=== PATIENT | female | born 1950 | race Caucasian/White ===

== ENCOUNTER 2017-01-11 09:53 | Day surgery (SDC) | payer MEDICARE ==
[~2017-01-11] VITALS: Ht 157.5 cm; Wt 59.0 kg
[~2017-01-11 09:53] MED LIST: 0.9% Sodium Chloride 1,000 ML IV PRN; ALBU0.63 INHALATION; ALBU8.5H2 INHALATION; ALEN70TA2 PO; ASPI-973 PO; BACL20TA PO; BECL8.7A6 IH; BECL8.7A6 INHALATION; CARV12.52 PO; DIFL500T PO; EPIN0.3P2 IJ; FLUO10CA20 PO; FURO-129 PO; HYDR-3825 PO; HYOS0.1281 SL; LEFL20TA18 PO; LISI10TA PO; METF500T4 PO; MIRA25TA PO; MIRT30TA PO; MONT10TA20 PO; MUPI15CR TOPICAL; PANT40TA2 PO; PROP80CA2 PO; RES15 PO; Sodium Chloride LOK Flush 10 mL Syringe IV PRN; TOLT4CAP13 PO; TRAM50TA2 PO; fentaNYL-PF 50 mCg/mL 2 mL Inj IVPUSH PRN
[2017-01-11 10:32] VITALS: BP 138/91; PULSE 105; RESP 17; O2SAT 98
[2017-01-11 12:03] VITALS: BP 123/77; PULSE 89; RESP 14; O2SAT 90
--- NOTE | 2017-01-11 12:03 | PCM.ENDCOL ---
Colonoscopy Date of Service: Jan 11, 2017 Physician Eric Dela Cruz MD Pre Procedure Diagnosis: Screening diarrhea last colonoscopy 17 years ago Post Procedure Dx & Findings: Polyps hemorrhoids diverticula and possible lipoma Procedure Colonoscopy Prep adequate Withdrawal 15 minutes PROCEDURE IN DETAIL: After unremarkable rectal examination Olympus video colonoscope was inserted patient's anal canal and was advanced to cecum. Landmarks are identified including the ileocecal valve and appendiceal orifice. Further events the terminal ileum up to 5-8 cm. Scope was withdrawn systematically. The mucosa of the cecum, ascending, transverse, descending, sigmoid, rectal mucosa lined with whitish, pink, smooth, glistening, normal-appearing mucosa, normal fine branching, underlying vascularity, normal haustra. The patient tolerated procedure and was transported to observation area. In the ascending colon there was a 2 mm polyp which was removed completely using cold snare. In the transverse colon there was a 1 cm lipomatous structure with positive pillow sign. Status post biopsy using cold forceps. In the descending colon there was a 3 mm polyp which was removed completely using cold snare. In the rectum there was a 1 mm polyp which was removed completely using cold forceps. Several small diverticuli noted in the cecum but isolated diverticuli also noted into the transverse colon. In the rectum retroflexion was done which showed hemorrhoids in a canal was inspected carefully and the way out and hemorrhoids noted. Random biopsies taken from cecum to the rectum. Impression Normal TI Normal colonic mucosa Polyps 2 status post complete removal Diverticuli Hemorrhoids Possible lipoma Recommendation Repeat colonoscopy 5 years Diverticular diet Presedation Assessment Risks and Benefits Informed consent was obtained from the patient after all risks and benefits including but not limited to drug reaction, infection, pain, bleeding, perforation, as well as alternatives were discussed. Patient monitoring Continuous pulse oximetry, cardiac monitoring, blood pressure monitoring, IV access, and oxygen at 2L per nasal cannula. Periprocedural Fentanyl: Fentanyl 125mcg Incrementally Midazolam: Midazolam 6mg Incrementally Complications There were no periprocedural complications identified. Post Procedure Plan Post Procedure Recommendations 1. Restrict activities today. 2. Resume normal activities in the morning. 3. Resume medications. 4. Patient informed of normal post procedure side effects as bloating, drowsiness, blood streaking in the stool. 5. average risk CRCS. If colon polyps come back as: -Hyperplastic- can repeat colonoscopy in 10 years -Tubular adenoma- repeat colonoscopy in 5 years -Tubulovillous/villous adenoma- repeat colonoscopy in 3 years -If any dysplasia- return to clinic as soon as possible 6. Please don't hesitate to call me with any questions. Eric Dela Cruz MD Jan 11, 2017 12:03
[2017-01-11 12:13] VITALS: BP 111/69; PULSE 87; RESP 16; O2SAT 93
[2017-01-11 12:23] VITALS: BP 100/49; PULSE 103; RESP 16; O2SAT 93
--- NOTE | 2017-01-12 11:20 | PATH ---
SURGICAL PATHOLOGY Attending Physician:Eric Dela Cruz M.D. CASE STATUS: Signed Out PATIENT NAME: ZAIRA CHÁVEZ PID: [id number] : 1950 DATE COLLECTED:01/11/2017 20:02 SPECIMEN: 1: Colon, Biopsy 2: Colon, Biopsy 3: Colon, Biopsy 4: Colon, Biopsy 5: Rectum, Biopsy CLINICAL HISTORY: DIARRHEA, COLON POLYPS 1). RANDOM COLON BIOPSY 2). ASCENDING COLON POLYP 3). TRANSVERSE COLON LIPOMA BIOPSY 4). DESCENDING COLON POLYP X1 5). RECTAL POLYP X1 FINAL DIAGNOSIS: 1.RANDOM COLON BIOPSIES: SINGLE FRAGMENT OF COLON MUCOSA WITH FOCAL MUCOSAL SCARRING CONSISTENT WITH PREVIOUS MUCOSAL INJURY. ALL ADDITIONAL COLON FRAGMENTS APPEAR NORMAL, NEGATIVE FOR SIGNIFICANT ARCHITECTURAL DISTORTION, INFLAMMATION, DYSPLASIA AND MALIGNANCY. 2.ASCENDING COLON POLYP: TUBULAR ADENOMA. 3.TRANSVERSE COLON LIPOMA BIOPSY: POLYPOID-SHAPED FRAGMENT OF COLON MUCOSA CONSISTENT WITH MUCOSAL POLYPOID REDUNDANCY WITH NO EVIDENCE OF SUBMUCOSAL LIPOMA. 4.DESCENDING COLON POLYP: TUBULAR ADENOMA. 5.RECTAL POLYP: HYPERPLASTIC POLYP. ICD10 CODE D12.2 GROSS DESCRIPTION: The specimen is received in five formalin filled containers labeled with the patient's name. 1). The specimen is sublabeled "random colon" and consists of 5 portions of tissue which aggregate to 0.5 x 0.5 x 0.3 CM. The specimen is entirely submitted in cassettes 1A. 2). The specimen is sublabeled "ascending colon polyp" and consists of a 0.4 x 0.3 x 0.2 CM portion of tissue which is entirely submitted in cassette 2A. 3). The specimen is sublabeled "transverse colon lipoma" and consists of a 0.2 x 0.2 x 0.2 CM portion of tissue which is entirely submitted in cassettes 3A. 4). The specimen is sublabeled "descending colon polyp" and consists of a 0.2 x 0.2 x 0.2 CM portion of tissue which is entirely submitted in cassette 4A. 5). The specimen is sublabeled "rectal polyp" and consists of a 0.2 x 0.2 x 0.2 CM portion of tissue which is entirely submitted in cassette 5A. 01/11/2017 DAC MICRO DESCRIPTION: See diagnosis. ICD-9 CODES: CPT CODES: 1: 35103 2: 15112 3: 39879 4: 42486 5: 27352 Electronically Signed Out Shad Ryan MD [facility] [address], [place] [address] Technical component performed at [facility], [address], [place], [address]
[2017-04-23] MEDS ORDERED: HYDR-3825 PO (15:20)
== END 2017-01-11 23:59 | disposition home or self-care (01) ==
LOC: END 09:53
PROVIDERS: ATTEND Internal Medicine
DX: Z12.11 Encounter for screening for malignant neoplasm of colon (principal); D12.2 Benign neoplasm of ascending colon; D12.4 Benign neoplasm of descending colon; K62.1 Rectal polyp; K63.5 Polyp of colon; K64.8 Other hemorrhoids; K57.30 Diverticulosis of large intestine without perforation or abscess without bleeding; E11.9 Type 2 diabetes mellitus without complications; I25.10 Atherosclerotic heart disease of native coronary artery without angina pectoris; M06.9 Rheumatoid arthritis, unspecified; K21.9 Gastro-esophageal reflux disease without esophagitis; E78.5 Hyperlipidemia, unspecified; G47.33 Obstructive sleep apnea (adult) (pediatric); Z79.51 Long term (current) use of inhaled steroids; Z79.84 Long term (current) use of oral hypoglycemic drugs; Z79.82 Long term (current) use of aspirin
CPT/HCPCS: 45380; 45385; 99153; G0500; J2250; J3010; J7030

== ENCOUNTER 2017-04-26 11:15 | Day surgery (SDC) | payer MEDICARE ==
[~2017-04-26] VITALS: Ht 157.5 cm; Wt 62.0 kg
[~2017-04-26 11:15] MED LIST changes: -0.9% Sodium Chloride 1,000 ML IV PRN; +0.9% Sodium Chloride 1,000 ML IV SCH; -FURO-129 PO; -HYOS0.1281 SL; -MIRA25TA PO; -MUPI15CR TOPICAL; -RES15 PO; -TOLT4CAP13 PO
[2017-04-26 11:51] VITALS: BP 151/91; PULSE 85; RESP 16; O2SAT 96
[2017-04-26] MEDS ORDERED: CARV12.52 PO (11:51)
[2017-04-26 12:30] VITALS: BP 119/78; PULSE 82; RESP 16; O2SAT 94
--- NOTE | 2017-04-26 12:34 | PCM.ENDEGD ---
EGD Date of Service: Apr 26, 2017 Physician Eric Dela Cruz MD Pre Procedure Diagnosis: Abdominal pain Post Procedure Dx & Findings: Gastritis Procedure Esophagogastroduodenoscopy PROCEDURE IN DETAIL: After proper sedation, Olympus video endoscope was inserted into patient's mouth and esophagus was successfully intubated. Scope introduced esophagus. Esophagus showed normal shiny whitish mucosa consistent with squamous cell component. Z line was intact at 40 cm from the incisors. Scope further advanced to the stomach. Antrum showed atrophy redness and edema consistent with gastritis. Biopsies obtained. Cardia fundus body antrum pylorus were all visualized. Retroflexion was done. Stomach was easily inflated and deflatable using air. Scope further advanced to the distal duodenum. Duodenum revealed normal villous structures with normal appearing folds without any mass ulcer erosion. 5 biopsies obtained. Impression Gastritis Recommendations Biopsies Presedation Assessment Risks and Benefits Informed consent was obtained from the patient after all risks and benefits including but not limited to drug reaction, infection, pain, bleeding, perforation, as well as alternatives were discussed. Patient monitoring Continuous pulse oximetry, cardiac monitoring, blood pressure monitoring, IV access, and oxygen at 2L per nasal cannula. Periprocedural Fentanyl: Fentanyl 75mcg Incrementally Midazolam: Midazolam 4mg Incrementally Complications There were no periprocedural complications identified. Post Procedure Plan Post Procedure Recommendations 1. Restrict activities today. 2. Resume normal activities in the morning. 3. Resume medications. 4. GERD behavioral modification: - Avoid fatty, acidic, spicy, large meals - Do not lie down after meals - Do not eat or drink anything for at least 2 1/2 hours before going to bed at night - Discontinue tobacco and alcohol - Decrease or avoid caffeine - Avoid chocolate and mints - Decrease weight - Avoid aspirin and non steroidal anti-inflammatory agents (NSAID) such as Aleve, Advil, Mobic, Naproxen, Ibuprofen, etc 5. Add proton pump inhibitor. Take 30 minutes before 1st meal of the day. 6. Patient informed of normal post procedure side effects as bloating, drowsiness, blood streaking in the stool 7. If gastric biopsy reveal H.pylori, continue with appropriate treatment 8. If small bowel biopsy reveals celiac, continue with appropriate treatment 9. Please don't hesitate to call me with any questions Eric Dela Cruz MD Apr 26, 2017 12:34
[2017-04-26 12:42] VITALS: BP 114/79; PULSE 78; RESP 16; O2SAT 91
[2017-04-26 12:52] VITALS: BP 131/80; PULSE 86; RESP 16; O2SAT 93
[2017-04-26 13:02] VITALS: BP 117/79; PULSE 77; RESP 16; O2SAT 93
--- NOTE | 2017-04-27 10:34 | PATH ---
SURGICAL PATHOLOGY Attending Physician:Eric Dela Cruz M.D. CASE STATUS: Signed Out PATIENT NAME: ZIARA CHÁVEZ PID: [id number] : 1950 DATE COLLECTED:04/26/2017 21:04 SPECIMEN: 1: Duodenum, Biopsy 2: Gastric, Biopsy CLINICAL HISTORY: 1). DUODENAL BIOPSY 2). GASTRIC BIOPSY FINAL DIAGNOSIS: 1.DUODENAL BIOPSY: CHANGES OF CHRONIC DUODENITIS WITH FOCAL AREAS OF FOVEOLAR METAPLASIA. Negative for evidence of celiac disease. Negative for dysplasia and malignancy. 2.GASTRIC BIOPSY: MILD CHRONIC GASTRITIS INVOLVING FUNDIC MUCOSA. Negative for evidence of Helicobacter. Negative for intestinal metaplasia. Negative for dysplasia and malignancy. ICD10 K29.70 GROSS DESCRIPTION: The specimen is received in two formalin filled containers labeled with the patient's name. 1). The specimen is sublabeled "duodenal" and consists of 3 portions of tissue which aggregate to 0.3 x 0.3 x 0.2 CM. The specimen is entirely submitted in cassette 1A. 2). The specimen is sublabeled "gastric" and consists of a 0.3 x 0.2 x 0.2 CM portion of tissue which is entirely submitted in cassette 2A. 04/26/2017 DAC MICRO DESCRIPTION: See diagnosis. ICD-9 CODES: CPT CODES: 1: 09811 2: 42883 Electronically Signed Out Shad Ryan MD [facility] [address] [place] [address] Technical component performed at [facility], [facility] [address], [place], [address]
== END 2017-04-26 23:59 | disposition home or self-care (01) ==
LOC: END 11:15
PROVIDERS: ATTEND Internal Medicine
DX: R19.7 Diarrhea, unspecified (principal); K29.50 Unspecified chronic gastritis without bleeding; K21.9 Gastro-esophageal reflux disease without esophagitis; K29.80 Duodenitis without bleeding; I25.10 Atherosclerotic heart disease of native coronary artery without angina pectoris; I34.0 Nonrheumatic mitral (valve) insufficiency; G47.33 Obstructive sleep apnea (adult) (pediatric); M06.9 Rheumatoid arthritis, unspecified
CPT/HCPCS: 43239; G0500; J7030

== ENCOUNTER → 2017-08-16 | Day surgery (SDC) | payer MEDICARE ==
[~2017-08-16] VITALS: Ht 157.5 cm; Wt 63.0 kg
[~2017-08-16] MED LIST changes: +0.9% Sodium Chloride 1,000 ML IV PRN; -0.9% Sodium Chloride 1,000 ML IV SCH; -BECL8.7A6 INHALATION; +CHOL40003 PO; +DETROL LA4 M1 PO; +DOCU-41 PO; +Lactated Ringer's 1,000 ML IV ONE; -PROP80CA2 PO; +RIFA550T3 PO; +SLO64 PO
[2017-08-16 10:33] VITALS: BP 125/82; PULSE 95; RESP 18; O2SAT 97
--- NOTE | 2017-08-16 11:49 | PCM.ENDEGD ---
EGD Date of Service: Aug 16, 2017 Physician Eric Dela Cruz MD Pre Procedure Diagnosis: new onset anemia Post Procedure Dx & Findings: Gastropathy irregular Z line Procedure Esophagogastroduodenoscopy PROCEDURE IN DETAIL: After proper sedation, Olympus video endoscope was inserted into patient's mouth and esophagus was successfully intubated. Scope introduced esophagus. Esophagus showed normal shiny whitish mucosa consistent with squamous cell component. Z line was at 40 cm from the incisors. Slight irregularity noted. Biopsy obtained. No clear displacement of Z line. Scope further advanced to the stomach. Stomach showed bumpy mucosa with some atrophy. Biopsies obtained from the proximal to distal stomach. Cardia fundus body antrum pylorus were all visualized. Retroflexion was done. Stomach was easily inflated and deflatable using air. Scope further advanced to the distal duodenum. Duodenum revealed normal villous structures with normal appearing folds without any mass ulcer erosion. Impression Irregular Z line Gastropathy No source of anemia. Presedation Assessment Risks and Benefits Informed consent was obtained from the patient after all risks and benefits including but not limited to drug reaction, infection, pain, bleeding, perforation, as well as alternatives were discussed. Patient monitoring Continuous pulse oximetry, cardiac monitoring, blood pressure monitoring, IV access, and oxygen at 2L per nasal cannula. Periprocedural Fentanyl: Fentanyl 175mcg Incrementally Midazolam: Midazolam 9mg Incrementally Complications There were no periprocedural complications identified. Post Procedure Plan Post Procedure Recommendations 1. Restrict activities today. 2. Resume normal activities in the morning. 3. Resume medications. 4. GERD behavioral modification: - Avoid fatty, acidic, spicy, large meals - Do not lie down after meals - Do not eat or drink anything for at least 2 1/2 hours before going to bed at night - Discontinue tobacco and alcohol - Decrease or avoid caffeine - Avoid chocolate and mints - Decrease weight - Avoid aspirin and non steroidal anti-inflammatory agents (NSAID) such as Aleve, Advil, Mobic, Naproxen, Ibuprofen, etc 5. Add proton pump inhibitor. Take 30 minutes before 1st meal of the day. 6. Patient informed of normal post procedure side effects as bloating, drowsiness, blood streaking in the stool 7. If gastric biopsy reveal H.pylori, continue with appropriate treatment 8. If small bowel biopsy reveals celiac, continue with appropriate treatment 9. Please don't hesitate to call me with any questions Eric Dela Cruz MD Aug 16, 2017 11:49
[2017-08-16 11:52] VITALS: BP 98/67; PULSE 86; RESP 11; O2SAT 90
--- NOTE | 2017-08-16 11:53 | PCM.ENDCOL ---
Colonoscopy Date of Service: Aug 16, 2017 Physician Eric Dela Cruz MD Pre Procedure Diagnosis: New-onset anemia Post Procedure Dx & Findings: Lipom? Hemorrhoids diverticuli Procedure Colonoscopy PROCEDURE IN DETAIL: Prep adequate Withdrawal time 14 minutes After unremarkable rectal examination the Olympus video colonoscope was inserted patient's anal canal and was advanced to cecum. Landmarks were identified including the ileocecal valve and appendiceal orifice. Scope was further advanced into terminal ileum which showed normal villous structures without any ulcer mass or erosion. Advanced 10 cm. Scope was withdrawn systematically. Visualized colonic mucosa showed healthy shiny mucosa with normal healthy-appearing vasculature. In the cecum, it appears that something was pushing against the cecum. Positive pillow sign. Biopsies obtained. Possible lipoma? In the transverse colon, there was a 1 cm lipoma that was seen earlier this year. Again positive pillow sign. Small few diverticuli noted in the cecum to the transverse colon. In the rectum retroflexion was done which showed hemorrhoids. Anal canal was inspected carefully on the way out and hemorrhoids noted. Impression Something pushing into the cecum. Biopsy obtained. Question lipoma? Terminal ileum normal Diverticuli Hemorrhoids No source of anemia Recommendation CT of the abdomen and pelvis enterography. Follow up in GI clinic Presedation Assessment Risks and Benefits Informed consent was obtained from the patient after all risks and benefits including but not limited to drug reaction, infection, pain, bleeding, perforation, as well as alternatives were discussed. Patient monitoring Continuous pulse oximetry, cardiac monitoring, blood pressure monitoring, IV access, and oxygen at 2L per nasal cannula. Complications There were no periprocedural complications identified. Post Procedure Plan Post Procedure Recommendations 1. Restrict activities today. 2. Resume normal activities in the morning. 3. Resume medications. 4. Patient informed of normal post procedure side effects as bloating, drowsiness, blood streaking in the stool. 5. average risk CRCS. If colon polyps come back as: -Hyperplastic- can repeat colonoscopy in 10 years -Tubular adenoma- repeat colonoscopy in 5 years -Tubulovillous/villous adenoma- repeat colonoscopy in 3 years -If any dysplasia- return to clinic as soon as possible 6. Please don't hesitate to call me with any questions. Eric Dela Cruz MD Aug 16, 2017 11:53
[2017-08-16 12:06] VITALS: BP 90/55; PULSE 81; RESP 11; O2SAT 95
[2017-08-16 12:10] VITALS: BP 116/57; PULSE 88; RESP 12; O2SAT 93
--- NOTE | 2017-08-20 15:37 | PATH ---
SURGICAL PATHOLOGY Attending Physician:Eric Dela Cruz M.D. CASE STATUS: Signed Out PATIENT NAME: ZAIRA CHÁVEZ PID: [id number] : 1950 DATE COLLECTED:08/16/2017 22:06 SPECIMEN: 1: Gastric, Biopsy 2: Esophagus, Biopsy 3: Soft Tissue, Lipoma CLINICAL HISTORY: 1). GASTRIC BIOPSY 2). DISTAL ESOPHAGUS BIOPSY 3). APPENDICEAL LIPOMA BIOPSY FINAL DIAGNOSIS: 1. Stomach, Biopsy: Antral and body-type mucosa with no diagnostic abnormality. Negative for Helicobacter organisms. Negative for intestinal metaplasia. Negative for dysplasia and malignancy. 2. Distal Esophagus, Biopsy: Squamocolumnar junctional mucosa with no diagnostic abnormality. Negative for intestinal metaplasia. Negative for dysplasia and malignancy. 3. Appendix, Biopsy: Colonic mucosa with no diagnostic abnormality. Additional levels were examined. Negative for active, chronic and microscopic colitis. Negative for dysplasia and malignancy. ICD10: R10.9 NOTE: The endoscopic impression of a lipoma is noted; however, only a small amount of muscularis mucosae is sampled and no mature adipose tissue is identified in the sections examined. GROSS DESCRIPTION: The specimen is received in three formalin filled containers and identification confirmed required. 1). The specimen is labeled "G." and consists of 3 extremely tiny portions of tissue which aggregate to 0.2 x 0.2 x 0.2 CM. The specimen is entirely submitted in cassette 1A. 2). The specimen is labeled " DE " and consists of a 0.1 x 0.1 x 0.1 CM portion of tissue which is entirely submitted in cassette 2A. 3). The specimen is labeled "appendiceal lipoma" and consists of 2 portions of tissue which aggregate to 0.2 x 0.2 x 0.2 CM. The specimen is entirely submitted in cassette 3A. 08/18/2017CO ICD-9 CODES: CPT CODES: 1: 15550 2: 64617 3: 42924 Electronically Signed Out Zuleima Jimenez MD [facility] Pathology [facility] [address], [place] [address] Technical component performed at [facility], [facility] [address], [place], [address]
== END | disposition home or self-care (01) ==
LOC: END 00:34
PROVIDERS: ATTEND Internal Medicine
DX: D50.0 Iron deficiency anemia secondary to blood loss (chronic) (principal); K57.30 Diverticulosis of large intestine without perforation or abscess without bleeding; K64.8 Other hemorrhoids; K31.9 Disease of stomach and duodenum, unspecified; R10.9 Unspecified abdominal pain; I10 Essential (primary) hypertension; E11.9 Type 2 diabetes mellitus without complications; I25.10 Atherosclerotic heart disease of native coronary artery without angina pectoris; H52.10 Myopia, unspecified eye; M06.9 Rheumatoid arthritis, unspecified; G47.33 Obstructive sleep apnea (adult) (pediatric); E78.5 Hyperlipidemia, unspecified; I42.9 Cardiomyopathy, unspecified; F17.210 Nicotine dependence, cigarettes, uncomplicated; Z79.82 Long term (current) use of aspirin; Z79.899 Other long term (current) drug therapy
CPT/HCPCS: 43239; 45380; 99153; G0500; J2250; J3010; J7030

== ENCOUNTER 2017-08-17 13:41 | Emergency (ER) | payer MEDICARE ==
[~2017-08-17] VITALS: Ht 157.5 cm; Wt 63.6 kg
[~2017-08-17 13:41] MED LIST changes: -0.9% Sodium Chloride 1,000 ML IV PRN; -DOCU-41 PO; -Lactated Ringer's 1,000 ML IV ONE; -RIFA550T3 PO; -SLO64 PO; -Sodium Chloride LOK Flush 10 mL Syringe IV PRN; -fentaNYL-PF 50 mCg/mL 2 mL Inj IVPUSH PRN
[2017-08-17 13:52] VITALS: BP 157/86; PULSE 94; RESP 18; O2SAT 97
[2017-08-17 14:18] LABS: BASOPHILS % (AUTO) 1.4 % (0-3); EOSINOPHILS % (AUTO) 1.7 % (0-5); MONOCYTES % (AUTO) 9.9 % (4-12); Mean Corpuscular Hemoglobin 22.5 pg (27.0-35.0); Mean Corpuscular Volume 73.7 fL (81-100); NEUTROPHILS % (AUTO) 66.3 % (40-74); Platelet Count 317 bil/L (150-400)
[2017-08-17 14:38] LABS: Magnesium 1.3 mg/dL (1.6-2.6)
--- NOTE | 2017-08-17 15:15 | DRSVH ---
PROCEDURE: X-RAY ACUTE ABDOMINAL SERIES ([id number]) INDICATIONS: ABDOMEN PAIN POST COLONOSCOPY TECHNIQUE: One view chest and two views of the abdomen were acquired. COMPARISON: [facility], CR, XR SMALL BOWEL BARIUM, 04/16/2017, 13:17. FINDINGS: Surgical changes and devices: Surgical clips suggest prior cholecystectomy.. There also is a rounded enteric staple line midline lower pelvis. Chest: Lungs are clear. Heart size is normal. No pleural effusions. No pneumoperitoneum. Abdomen: Bowel gas pattern is normal. No suspicious calcifications. Visualized solid organ contour s appear normal. Bones: No suspicious bony lesions. IMPRESSION: No free air seen, no retroperitoneal gas identified. No sign of intestinal obstruction o r perforation found. Presumed prior cholecystectomy given the pattern of surgical clips present. Enteric staple line midl ine in the lower pelvis. Dictated by: Grzegorz Contreras M.D. on 08/17/2017 at 14:57 Approved by: Grzegorz Contreras M.D. on 08/17/2017 at 14:58
[2017-08-17 15:35] VITALS: BP 122/85; PULSE 93; RESP 16; O2SAT 95
[2017-08-17] MEDS ORDERED: Magnesium Chloride SR 64 mg ER24 Tablet PO ONE (15:50)
--- NOTE | 2017-08-17 15:52 | ED.REPORT ---
HPI-Abd Pain F 40 and Over Date of Service Aug 17, 2017 ED Provider: Brendan Lake DO Patient is a 66 year old female with a history of hypertension, CAD and diabetes , status post colonoscopy yesterday who presents to the ED complaining of abdominal pain onset 0400 this morning. Associated symptoms include nausea and inability to pass gas. She denies vomiting or leg swelling. The patient reports that she tried to eat this morning to help her pain but it has not improved. Nursing Notes Stated Complaint: POST SURGICAL PAIN/COLONOSCOPY AND EGD Chief Complaint: Female Abdominal Pain Nursing Notes Reviewed: Yes Allergies: Coded Allergies: Iodine and Iodide Containing Produc (Verified Allergy, Severe, ANAPHYLAXIS , 08/17/17) crab (Verified Allergy, Severe, ANAPHYLAXIS, 08/17/17) gabapentin (Verified Allergy, Severe, delirium, 08/17/17) iodine (Verified Allergy, Severe, 08/17/17) Sulfa (Sulfonamide Antibiotics) (Verified Allergy, Intermediate, 08/17/17) oxybutynin (Verified Allergy, Intermediate, gi upset, 08/17/17) codeine (Verified Allergy, Unknown, 08/17/17) cholestyramine (Unverified Adverse Reaction, Intermediate, 01/07/17) pramipexole (Unverified Adverse Reaction, Intermediate, 01/07/17) sucrose (Unverified Adverse Reaction, Intermediate, 01/07/17) tetracaine (Unverified Adverse Reaction, Intermediate, 08/17/17) hepatitis B virus vaccine, recombin (Unverified Adverse Reaction, Unknown , 08/17/17) moxifloxacin (Unverified Adverse Reaction, Unknown, 08/17/17) pneumococcal vaccine (Unverified Adverse Reaction, Unknown, 08/17/17) trospium (Unverified Adverse Reaction, Unknown, 08/17/17) zolpidem (Unverified Adverse Reaction, Unknown, 08/17/17) Scheduled Alendronate Sodium (Fosamax) 70 Mg Tablet 70 MG PO WEEKLY Aspirin (Aspirin) 81 Mg Tablet 81 MG PO DAILY Carvedilol (Carvedilol) 12.5 Mg Tablet 12.5 MG PO BID Cholecalciferol (Vitamin D3) (Vitamin D3) 4,000 Unit Capsule 4,000 UNIT PO DAILY Diflunisal (Diflunisal) 500 Mg Tablet 500 MG PO BID Fluoxetine (Fluoxetine) 10 Mg Capsule 10 MG PO DAILY Leflunomide (Leflunomide) 20 Mg Tablet 20 MG PO DAILY Lisinopril (Lisinopril) 10 Mg Tablet 10 MG PO DAILY Magnesium Chloride (Slow-Mag) 64 Mg Tablet 64 MG PO DAILY Metformin (Metformin) 500 Mg Tablet 500 MG PO BID Mirtazapine (Remeron) 30 Mg Tablet 60 MG PO HS 2 tabs Montelukast (Singulair) 10 Mg Tablet 10 MG PO HS Pantoprazole DR (Protonix) 40 Mg Tablet 40 MG PO DAILY Tolterodine Tartrate ER (Detrol LA) 4 Mg Capsule 4 MG PO DAILY Scheduled PRN Albuterol HFA (Proair HFA) 8.5 Gm Hfa.aer.ad 2 PUFFS INHALATION Q4H PRN PRN For Shortness of Breath Albuterol Neb Soln (Albuterol Neb Soln) 0.63 Mg/3 Ml Vial.neb 0.083 MG INHALATION Q4-6HR PRN PRN For Shortness of Breath Baclofen (Baclofen) 20 Mg Tablet 10-20 MG PO DAILY PRN PRN For Pain 1/2 -2 tabs Beclomethasone Dipropionate (Qvar) 8.7 Gm Aer.w.adap 2 PUFFS IH BID PRN PRN For Shortness of Breath 2 PUFFS Docusate Sodium (Colace) 100 Mg Capsule 100 MG PO BID PRN PRN For Constipation Epinephrine (Epipen 2-Colton) 0.3 Mg/0.3 Ml Auto.injct 0.3 MG IJ PRN For Anaphyllaxis Hydrocodone-Acetaminophen 7.5-325 mg (Hydrocodone-Acetaminophen 7.5-325 mg) 1 Each Tablet 1 TABLET PO Q4H PRN PRN For Pain Tramadol (Tramadol) 50 Mg Tablet 50-100 MG PO Q6h PRN PRN For Pain General Time Seen by MD: 15:40 Chief Complaint Abdominal pain Hx Obtained From: Patient Arrived By: Walk-in Sudden in Onset?: Yes Onset Occurred: 1 - 4 hours ago Symptom Duration: Since onset Location: : Diffuse Quality: Painful Severity: Current: Moderate Recent Healthcare: Recent doctor visit Similar Sx Previous: No Past Medical History Past Medical History Optical neuritis Osteoarthritis Reports: Asthma, Coronary artery disease, Diabetes mellitus, GERD, Hyperlipidemia, Hypertension Reports: Depression, Migraines Past Surgical History BTL Laparoscopy x2 for endometriosis Cone biopsy vs cryo for cervical dysplasia Reports: Appendectomy, Cholecystectomy, Tonsillectomy Family History Mother of PE Smoking History Current Every Day Smoker Social History Alcohol Use: Denies alcohol use Ambulatory Status Independent Review of Systems +unable to pass gas GI: Reports: Abdominal pain, Constipation, Nausea, Denies: Vomiting Complete sys rev & neg: except as marked. Skin: Denies Swelling Physical Exam Vital Signs Vital Signs (First) Date Time Temp Pulse Resp B/P Pulse Ox O2 Delivery O2 Flow Rate FiO2 08/17/17 13:52 36.3 94 18 157/86 97 Room Air Initial VS: Reviewed General/Constitutional: Awake, Alert Respiratory / Chest: Atraumatic, Breath sounds NL, Breath sounds = bilat, No respiratory distress Cardiovascular: Heart rate NL, Regular rhythm, Heart sounds NL Heart Sounds / Murmur: Positive: Systolic murmur present.. (I/) Abdomen: Atraumatic, Soft, Non-tender, No guarding, No rebound Bowel Sounds / Distention: Positive: Distention mild Back: Atraumatic, Non-tender Head / Eyes: Atraumatic, Normocephalic Skin: Atraumatic, Color NL, No rash, Warm, Dry Neurologic: Oriented X3, Speech NL Upper Extremity / MS: Atraumatic, Full range of motion Lower Extremity / Pelvis / MS: Atraumatic, No edema Interpretation & Diagnostics Lab Results Interpretation Result Diagram: 08/17/17 1405 08/17/17 1405 Test 08/17/17 14:05 08/17/17 15:43 White Blood Count 9.6th/mm3 (3.8-10.1) Red Blood Count 4.72mil/mm3 (3.90-5.20) Hemoglobin 10.6g/dL (12.0-15.6) Hematocrit 34.8% (35.0-46.0) Mean Corpuscular Volume 73.7fL (81-100) Mean Corpuscular Hemoglobin 22.5pg (27.0-35.0) Mean Corpuscular Hemoglobin Concent 30.5% (32.0-37.0) Red Cell Distribution Width 20.3% (12.3-15.4) Platelet Count 317bil/L (150-400) Neutrophils (%) (Auto) 66.3% (40-74) Lymphocytes (%) (Auto) 20.5% (14-46) Monocytes (%) (Auto) 9.9% (4-12) Eosinophils (%) (Auto) 1.7% (0-5) Basophils (%) (Auto) 1.4% (0-3) Sodium Level 130mEq/L (134-144) Potassium Level 4.3mEq/L (3.5-5.2) Chloride Level 92mEq/L (97-108) Carbon Dioxide Level 22mmol/L (18-29) Blood Urea Nitrogen 13mg/dL (8-27) Creatinine 0.60mg/dL (0.57-1.00) Estimat Glomerular Filtration Rate 143mL/min (>59) Glucose Level 211mg/dL (60-99) Calcium Level 10.6mg/dL (8.5-10.1) Magnesium Level 1.3mg/dL (1.6-2.6) Total Bilirubin 0.2mg/dL (0.0-1.2) Aspartate Amino Transf (AST/SGOT) 19U/L (0-50) Alanine Aminotransferase (ALT/SGPT) 25U/L (0-32) Alkaline Phosphatase 75U/L (25-165) Total Protein 6.6g/dL (6.4-8.4) Albumin 4.2g/dL (3.4-5.0) Lipase 20U/L (13-60) Hold Turcios Top Tube Received (Received) X-Ray Abdominal Interpretation IMPRESSION: No free air seen, no retroperitoneal gas identified. No sign of intestinal obstruction or perforation found. Presumed prior cholecystectomy given the pattern of surgical clips present. Enteric staple line midline in the lower pelvis. Dictated by: Grzegorz Contreras M.D. on 08/17/2017 at 14:57 Approved by: Grzegorz Contreras M.D. on 08/17/2017 at 14:58 Interpretation / Wet Read by: Interpret - Radiologist Re-Eval/Medical Decision Re-Evaluation/Progress : Time of Eval: 16:11 Re-Evaluation/Progress Note: Discussed plan for magnesium to help her slightly low levels, meds to help her constipation and discharge. Patient understands and agrees to plan. All questions were addressed. Consultation : Referral / Consult Name: Eric Dela Cruz MD Consulted With: On-call physician (GI) Call Returned at: 15:53 Note: Consult with Dr. Dela Cruz, who recommends trying for constipation Counseled Regarding: Diagnosis, Lab results, Need for follow-up, When/why to return to ED Discharge & Departure Primary Impression: Abdominal pain Abdominal location: generalized Qualified Code: R10.84 - Generalized abdominal pain Additional Impression: Constipation Constipation type: unspecified constipation type Qualified Code: K59.00 - Constipation, unspecified Disposition: Home Discharge Condition All VS Reviewed: Yes Condition: Stable Patient Instructions: Acute Abdominal Pain (ED), Constipation (ED) Additional Instructions: Your labs and abdomen X-ray were normal and reassuring. You can take Reglan to help with nausea and constipation. Follow up with your GI doctor next week. Return to the emergency department if you develop any new or concerning symptoms. Referrals: Marybeth Barker MD (PCP) [facility]aine[facility] Attestation Portions of this note were transcribed by Aleisha Palomino. I, Dr. Charles Lerma personally performed the history, physical exam and medical decision-making; I reviewed and confirmed the accuracy of the information in the transcribed note. Signed by: Marleen Staples, 08/17/17 copies to: Marybeth Barker MD, Timothy S DO Aug 17, 2017 15:52 Mila Palomino Aug 17, 2017 16:01
[2017-08-17] MEDS ORDERED: SLO64 PO (16:06)
[2017-08-17] MEDS ORDERED: DOCU-41 PO (16:06)
[2017-08-17 16:19] VITALS: BP 122/85; PULSE 93; RESP 16; O2SAT 95
== END 2017-08-17 16:20 | disposition home or self-care (01) ==
LOC: SED 13:41
DX: K59.00 Constipation, unspecified (principal); R11.0 Nausea; I10 Essential (primary) hypertension; I25.10 Atherosclerotic heart disease of native coronary artery without angina pectoris; E11.9 Type 2 diabetes mellitus without complications; J45.909 Unspecified asthma, uncomplicated; K21.9 Gastro-esophageal reflux disease without esophagitis; F17.210 Nicotine dependence, cigarettes, uncomplicated; Z90.89 Acquired absence of other organs; Z79.82 Long term (current) use of aspirin; Z79.51 Long term (current) use of inhaled steroids; Z90.49 Acquired absence of other specified parts of digestive tract; Z88.2 Allergy status to sulfonamides; Z88.5 Allergy status to narcotic agent; Z98.890 Other specified postprocedural states; Z88.8 Allergy status to other drugs, medicaments and biological substances